=== PATIENT | female | born 1965 | race Caucasian/White ===

== ENCOUNTER 2022-10-16 13:51 | Emergency (ER) | payer OTHER, MEDICAID ==
[~2022-10-16] VITALS: Ht 165.1 cm; Wt 81.8 kg
[2022-10-16] MEDS ORDERED: 00186-0370-20 IH (14:00)
[2022-10-16] MEDS ORDERED: WELLBUTRIN XL150 MG PO (14:00)
[2022-10-16] MEDS ORDERED: ZOLOFT 100MG100 MG PO (14:00)
[2022-10-16] MEDS ORDERED: PROAIR HFA0.09 MG/AC IH (14:00)
[2022-10-16] MEDS ORDERED: SYNTHROID 0.10.15 MG PO (14:01)
[2022-10-16 14:14] LABS: BASO # 0.1 K/mm3 (0.0-0.2); BASO % 0.3 % (0.0-2.0); EOS # 0.2 K/mm3 (0.0-0.7); EOS % 1.4 % (0.0-4.0); GRAN # 12.1 K/mm3 (1.4-6.5); GRAN % 73.6 % (42.2-75.2); HEMATOCRIT 44.4 % (37.0-47.0); HEMOGLOBIN 14.5 g/dl (12.5-16.0); LYMPH # 2.9 K/mm3 (1.2-3.4); LYMPH % 17.4 % (20.0-51.0); MEAN CELL VOLUME 89 fl (80.0-100.0); MEAN CORPUSCULAR HEMOGLOBIN 29 pg (27-31); MEAN CORPUSCULAR HGB CONC 33 g/dl (33.0-37.0); MONO # 1.1 K/mm3 (0.1-0.6); MONO % 6.9 % (1.7-9.3); PLATELET COUNT 434 K/mm3 (130-400); RED BLOOD COUNT 4.97 M/mm3 (4.10-5.30); REDCELL DISTRIBUTION WIDTH-CV 13.4 % (11.5-14.5)
[2022-10-16 14:30] LABS: ALBUMIN 3.7 gm/dL (3.5-5.0); CALCIUM 8.8 mg/dL (8.4-10.2); CREATININE, serum 0.99 mg/dL (0.57-1.11); PHOSPHOROUS 3.1 mg/dL (2.3-4.7); POTASSIUM 3.9 mmol/L (3.5-4.5)
[2022-10-16] MEDS ORDERED: DECADRON 4MG TAB4 MG PO (15:18)
[2022-10-16] MEDS ORDERED: CLARITIN 1010 MG/TAB PO (15:18)
[2022-10-16] MEDS ORDERED: NASONEX SPRAY17 GM NS (15:18)
[2022-10-16] MEDS ORDERED: TESSALON P100 MG/CAP PO (15:24)
[2022-10-16 15:44] VITALS: BP 118/79; PULSE 101; TEMP 98.4
== END 2022-10-16 15:48 | disposition home or self-care (01) ==
LOC: COL.ER 13:51
PROVIDERS: Emergency Medicine
DX: J45.901 Unspecified asthma with (acute) exacerbation (principal); J01.90 Acute sinusitis, unspecified; J98.8 Other specified respiratory disorders; B97.89 Other viral agents as the cause of diseases classified elsewhere; D72.829 Elevated white blood cell count, unspecified; Z79.51 Long term (current) use of inhaled steroids
CPT/HCPCS: J7120; J8540

== ENCOUNTER 2023-04-11 10:58 | Emergency (ER) | payer MEDICARE, MEDICAID ==
[~2023-04-11] VITALS: Ht 165.1 cm; Wt 81.8 kg
[~2023-04-11 10:58] MED LIST: 00186-0370-20 IH; CLARITIN 1010 MG/TAB PO; DECADRON 4MG TAB4 MG PO; NASONEX SPRAY17 GM NS; PROAIR HFA0.09 MG/AC IH; SYNTHROID 0.10.15 MG PO; TESSALON P100 MG/CAP PO; WELLBUTRIN XL150 MG PO; ZOLOFT 100MG100 MG PO
[2023-04-11 12:46] VITALS: BP 113/74; PULSE 75; TEMP 96.7
== END 2023-04-11 12:46 | disposition home or self-care (01) ==
LOC: COL.ER 10:58
DX: S09.90XA Unspecified injury of head, initial encounter (principal); S01.512A Laceration without foreign body of oral cavity, initial encounter; S80.211A Abrasion, right knee, initial encounter; S70.01XA Contusion of right hip, initial encounter; Z87.891 Personal history of nicotine dependence; W19.XXXA Unspecified fall, initial encounter; Y92.219 Unspecified school as the place of occurrence of the external cause
CPT/HCPCS: J1885